=== PATIENT | female | born 1995 | race Two or more races ===

== ENCOUNTER 2019-12-01 23:52 | Emergency (ER) | payer SELFPAY ==
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
[2019-12-02 00:50] LABS: APPEARANCE,URINE CLOUDY; BILIRUBIN,URINE NEGATIVE (NEGATIVE); COLOR,URINE YELLOW; GLUCOSE, URINE NEGATIVE (NEGATIVE); KETONES,URINE NEGATIVE (NEGATIVE); PROTEIN,URINE 30 mg/dL (NEGATIVE); URINE SPECIFIC GRAVITY 1.019; UROBILINOGEN,URINE NEGATIVE mg/dL (<2.0)
[2019-12-02 01:28] LABS: ABSOLUTE LYMPHOCYTES (AUTO) 1.3 10^3/uL (0.5-4.7); ABSOLUTE MONOCYTES (AUTO) 0.5 10^3/uL (0.1-1.4); ABSOLUTE NEUT (AUTO) 4.5 10^3/uL (1.7-8.2); BASOPHILS % (AUTO) 0.5 % (0-2); EOSINOPHILS % (AUTO) 0.3 % (0-6); HEMATOCRIT 42.3 % (36.0-47.0); HEMOGLOBIN 14.4 g/dL (12.0-15.5); LYMPHOCYTES % (AUTO) 20.1 % (13-45); MEAN CORPUSCULAR HEMOGLOBIN 29.9 pg (27.0-33.4); MEAN CORPUSCULAR HGB CONC 34.1 g/dL (32.0-36.0); MEAN CORPUSCULAR VOLUME 88 fl (80-97); MONOCYTES % (AUTO) 8.5 % (3-13); PLATELET COUNT 210 10^3/uL (150-450); RED BLOOD COUNT 4.82 10^6/uL (3.72-5.28); RED CELL DISTRIBUTION WIDTH 13.4 % (11.5-14.0); SEGMENTED NEUTROPHILS % (AUTO) 70.6 % (42-78); TOTAL CELLS COUNTED % (AUTO) 100 %; WHITE BLOOD COUNT 6.4 10^3/uL (4.0-10.5)
[2019-12-02 01:48] LABS: ALBUMIN 4.6 g/dL (3.5-5.0); ALKALINE PHOSPHATASE 63 U/L (38-126); ANION GAP 9 (5-19); ASPARTATE AMINO TRANSFERASE 25 U/L (14-36); BILIRUBIN,DIRECT 0.2 mg/dL (0.0-0.4); BILIRUBIN,TOTAL 0.4 mg/dL (0.2-1.3); BLOOD UREA NITROGEN 12 mg/dL (7-20); CALCIUM 9.6 mg/dL (8.4-10.2); CARBON DIOXIDE 28 mmol/L (22-30); CHLORIDE 102 mmol/L (98-107); GLUCOSE 98 mg/dL (75-110); POTASSIUM 4.5 mmol/L (3.6-5.0)
[2019-12-02] MEDS ORDERED: RINGERS SOLUTION,LACTATED 1,000 ML IV ONE (01:56)
[2019-12-02] MEDS ORDERED: HYDROMORPHONE HCL INJ/PF 2 MG/ML AMPULE IV ONE (01:56)
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
--- NOTE | 2019-12-02 02:47 | RADIOLOGY REPORT (SQ) ---
CT abdomen and pelvis with contrast on 12/02/2019 at 2:23 AM CLINICAL INDICATION: Left lower quadrant pain, fever TECHNIQUE: Multiple axial images are obtained throughout the abdomen and pelvis following the administration of IV contrast, 73 mL of Omnipaque 350 contrast was administered intravenously without complication. This exam was performed according to our departmental dose-optimization program, which includes automated exposure control, adjustment of the mA and/or kV according to patient size and/or use of iterative reconstruction technique. Total DLP is 572.58 mGy*cm. COMPARISON: None FINDINGS: Abdomen: The lung bases are clear. The solid abdominal organs are unremarkable. There is no abdominal adenopathy. There is no free fluid or free air within the abdomen. The abdominal portion of the GI tract is unremarkable. Pelvis: Small amount of free fluid in the pelvis is likely physiologic. Pelvic organs appear unremarkable by CT. There is bladder wall thickening with surrounding fat stranding suggesting cystitis, recommend correlation with urinalysis. Pelvic portion of the GI tract including the appendix is unremarkable. No bony abnormality is noted. IMPRESSION: 1. Findings suggesting cystitis, recommend correlation with urinalysis. 2. Otherwise no acute abnormality.
[2019-12-02 04:19] LABS: CHLAM PCR DETECTED (NOT DETECT)
[2019-12-02] MEDS ORDERED: LIDOCAINE 1% INJ-PF (10 MG/ML) 30 ML SDV INJ ONE (04:47)
[2019-12-02] MEDS ORDERED: DOXYCYCLINE HYCLATE 100 MG TABLET PO ONE (04:47)
[2019-12-02] MEDS ORDERED: CEFTRIAXONE INJ 250 MG VIAL IM ONE (04:47)
[2019-12-02] MEDS ORDERED: METRONIDAZOLE 500 MG TABLET PO ONE (04:47)
[2019-12-02 05:46] VITALS: BP 125/65
== END 2019-12-02 05:45 | disposition home or self-care (01) ==
LOC: ER 23:52
DX: N73.0 Acute parametritis and pelvic cellulitis (principal); A56.09 Other chlamydial infection of lower genitourinary tract; R10.9 Unspecified abdominal pain; R50.9 Fever, unspecified
CPT/HCPCS: 99284; 96372; 96361; 96374; 36415; 87086; 84703; 85025; 80053; 81001; 87491; 87591; 74177; J3490; J1170; J7120; J0696

== ENCOUNTER 2020-06-19 03:54 | Emergency (ER) | payer SELFPAY ==
[2020-06-19] MEDS ORDERED: DIPHENHYDRAMINE HCL 50 MG CAPSULE PO ONE (07:26)
[2020-06-19] MEDS ORDERED: PREDNISONE 20 MG TABLET PO ONE (07:26)
--- NOTE | 2020-06-19 07:35 | ER Document Report ---
ED General - General Chief Complaint: Rash Stated Complaint: BODY RASH,CHEST TIGHTNESS,CHILLS Time Seen by Provider: 06/19/20 06:25 Notes: HPI: 24-year-old female that presents today stating yesterday after eating a cheeseburger she felt a rash to the right neck that then spread a little bit to the face. She did take a Benadryl. She states she felt some chest tightness at the same time. She denies any cough, fevers, vomiting, calf pain or leg swelling. She states she has an allergy to "some substance" causing allergic reaction when she was a child. She denies taking any medications. She denies any other new allergy contact such as soaps or perfumes. ROS: See HPI All other review of systems reviewed and otherwise negative Reviewed vital signs and nursing note as charted by RN. PHYSICAL EXAM: CONSTITUTIONAL: Alert and oriented and responds appropriately to questions. Well-appearing; well-nourished HEAD: Normocephalic; atraumatic EYES: PERRL; Conjunctivae clear, sclerae non-icteric ENT: Normal nose; no rhinorrhea; moist mucous membranes; pharynx without lesions noted NECK: Supple without meningismus; non-tender; no cervical lymphadenopathy, no masses CARD: Regular rate and rhythm; no murmurs; symmetric distal pulses RESP: Normal chest excursion without splinting or tachypnea; breath sounds clear and equal bilaterally; no wheezes, no rhonchi, no rales ABD/GI: Normal bowel sounds; non-distended; soft, non-tender BACK: The back appears normal and is non-tender to palpation EXT: Normal ROM in all joints; non-tender to palpation; no edema SKIN: Very fine blanching rash to the right neck and chin. Nontender to palpation. No palm or sole lesions present NEURO: CN 2-12 intact; 5/5 bilateral upper and lower extremity strength with sensation intact to light touch PSYCH: The patient's mood and manner are appropriate. Grooming and personal hygiene are appropriate. - Related Data Allergies/Adverse Reactions: No Known Allergies Allergy (Unverified 12/02/19 01:41) Past Medical History - Social History Smoking Status: Never Smoker Family History: None Physical Exam - Vital signs Vitals: Temp Pulse Resp BP Pulse Ox 97.9 F 75 18 124/78 100 06/19/20 04:01 06/19/20 04:01 06/19/20 04:01 06/19/20 04:01 06/19/20 04:01 Course - Re-evaluation Re-evalutation: Given the history and physical exam in this well-appearing female no acute distress, vital signs as recorded, with a very fine non-worrisome appearing rash, clear lungs bilaterally, no lip, tongue, posterior pharyngeal swelling, we will obtain an EKG as well as an x-ray of the chest. I will provide steroids and Benadryl and reassess. I do not believe that the patient is having an anaphylactic reaction at this time. I do not believe this is an infectious rash. 06/19/20 07:38 EKG shows a heart rate of 81, normal sinus rhythm, normal axis, no ST elevation or depression. 06/19/20 08:06 Patient had a transient episode supposedly witnessed in the room her heart rate went to 140. EKG was not performed. Patient is now on the monitor with a heart rate of 98. I will add a hemoglobin level as well as a TSH and a d-dimer. 06/19/20 09:02 Heart rate is normalized. X-ray of the chest and d-dimer is recorded. Awaiting TSH and troponin. Electrolytes unremarkable with a normal white blood cell count. 06/19/20 09:45 Troponin and TSH as recorded. 06/19/20 10:08 Patient's heart rate is 98. She states she has some intermittent palpitations. Rash is completely resolved. Vital signs are otherwise stable. Patient will be discharged home with strict return precautions and follow-up with cardiology as an outpatient. Repeat EKG shows a heart rate of 101, sinus tachycardia, normal axis, no ST elevation or depression - Vital Signs Vital signs: Temp Pulse Resp BP Pulse Ox 97.5 F 106 H 18 158/114 H 100 06/19/20 07:15 06/19/20 08:10 06/19/20 08:10 06/19/20 08:04 06/19/20 08:10 - Laboratory Result Diagrams: 06/19/20 05:15 06/19/20 05:15 Laboratory results interpreted by me: 06/19/20 05:15 Lymph % (Auto) 55.6 H Seg Neutrophils % 35.1 L Discharge - Discharge Clinical Impression: Palpitations, Atypical chest pain Condition: Good Disposition: HOME, SELF-CARE Instructions: COVID-19 Guidance for Persons Under Investigation Additional Instructions: Come back immediately for any worsening pain, change in location or quality of pain, return of rash, fevers, leg swelling, or any other acute problems. Please make sure that you follow-up with the primary care physician as well as the smog technician that we have provided. Please make sure that you quarantine yourself until your coronavirus test has resulted. Prescriptions: Prednisone [Deltasone 20 mg Tablet] 3 tab PO DAILY 5 Days #9 tablet Referrals: NAFISA AVILA MD [ACTIVE STAFF] - Follow up as needed
--- NOTE | 2020-06-19 08:04 | EKG REPORT ---
SEVERITY:- NORMAL ECG - SINUS RHYTHM ST ELEV, PROBABLE NORMAL EARLY REPOL PATTERN : Confirmed by: Louise Sands 19-Jun-2020 08:04:08
[2020-06-19 08:26] LABS: ABSOLUTE EOSINOPHILS # (AUTO) 0.1 10^3/uL (0.0-0.6); ABSOLUTE LYMPHOCYTES (AUTO) 3.3 10^3/uL (0.5-4.7); ABSOLUTE MONOCYTES (AUTO) 0.4 10^3/uL (0.1-1.4); ABSOLUTE NEUT (AUTO) 2.1 10^3/uL (1.7-8.2); BASOPHILS % (AUTO) 0.4 % (0-2); EOSINOPHILS % (AUTO) 1.3 % (0-6); HEMOGLOBIN 13.1 g/dL (12.0-15.5); LYMPHOCYTES % (AUTO) 55.6 % (13-45); MEAN CORPUSCULAR HEMOGLOBIN 29.8 pg (27.0-33.4); MEAN CORPUSCULAR HGB CONC 34.5 g/dL (32.0-36.0); MEAN CORPUSCULAR VOLUME 86 fl (80-97); MONOCYTES % (AUTO) 7.6 % (3-13); PLATELET COUNT 201 10^3/uL (150-450); RED BLOOD COUNT 4.41 10^6/uL (3.72-5.28); RED CELL DISTRIBUTION WIDTH 12.9 % (11.5-14.0); SEGMENTED NEUTROPHILS % (AUTO) 35.1 % (42-78); TOTAL CELLS COUNTED % (AUTO) 100 %; WHITE BLOOD COUNT 5.9 10^3/uL (4.0-10.5)
--- NOTE | 2020-06-19 08:29 | RADIOLOGY REPORT (SQ) ---
EXAM DESCRIPTION: CHEST SINGLE VIEW IMAGES COMPLETED DATE/TIME: 06/19/2020 6:50 am REASON FOR STUDY: 35; chest pian COMPARISON: None. EXAM PARAMETERS: NUMBER OF VIEWS: One view. TECHNIQUE: Single frontal radiographic view of the chest acquired. RADIATION DOSE: NA LIMITATIONS: None. FINDINGS: LUNGS AND PLEURA: No opacities, masses or pneumothorax. No pleural effusion. MEDIASTINUM AND HILAR STRUCTURES: No masses. Contour normal. HEART AND VASCULAR STRUCTURES: Heart normal in size. Normal vasculature. BONES: No acute findings. HARDWARE: None in the chest. OTHER: No other significant finding. IMPRESSION: NO ACUTE RADIOGRAPHIC FINDING IN THE CHEST. TECHNICAL DOCUMENTATION: JOB ID: [id number] 2010 [employer]- All Rights Reserved Reading location - IP/workstation name: [email or web address]
[2020-06-19 08:41] LABS: ANION GAP 11 (5-19); BLOOD UREA NITROGEN 13 mg/dL (7-20); CALCIUM 9.7 mg/dL (8.4-10.2); CARBON DIOXIDE 27 mmol/L (22-30); CHLORIDE 101 mmol/L (98-107); GLUCOSE 85 mg/dL (75-110)
[2020-06-19] MEDS ORDERED: NORMAL SALINE 1000 ML 1,000 ML IV ONE (09:44)
[2020-06-19 10:27] VITALS: BP 109/67
== END 2020-06-19 10:58 | disposition home or self-care (01) ==
LOC: ER 03:54
DX: R00.2 Palpitations (principal); R07.89 Other chest pain; R21 Rash and other nonspecific skin eruption; R68.83 Chills (without fever); Z20.828 Contact with and (suspected) exposure to other viral communicable diseases
CPT/HCPCS: 93005; 99285; 96360; 36415; 84443; 85025; 87635; 81025; 80048; 84484; 85379; 71045; 93010; J7512; J7030; C9803